=== PATIENT | male | born 1995 | race Two or more races ===

== ENCOUNTER 2024-05-03 19:37 | Inpatient (IN) | payer MEDICAID, SELFPAY ==
[2024-05-03 19:40] VITALS: BMI 24.3
[2024-05-03 21:05] VITALS: BP 121/84; PULSE 118; RESP 20; TEMP 36.7; O2SAT 97
--- NOTE | 2024-05-03 21:38 | PD.EDRME ---
Rapid Medical Screening Exam RME Arrival date/time: 05/03/24 19:37 Chief Complaint: Nausea/Vomiting/Diarrhea Time Seen by Provider: 05/03/24 21:11 Vital signs: Vital Signs Temperature 98.1 F 05/03/24 21:05 Pulse Rate 118 H 05/03/24 21:05 Respiratory Rate 20 05/03/24 21:05 Blood Pressure 121/84 05/03/24 21:05 Pulse Oximetry (%) 97 05/03/24 21:05 Oxygen Delivery Method Room Air 05/03/24 21:05 Vital signs reviewed by provider: Yes RME Narrative: 28-year-old male with past medical history of diabetes on insulin presents for evaluation of diffuse abdominal pain and vomiting x 3 days. He reports blood sugars at home in the mid 200s.
[2024-05-03 21:59] LABS: Basophils % (Auto) 0 % (0-2.5); Eosinophils % (Auto) 0 % (0-10); Hemoglobin 15.9 g/dL (13.5-16.0); Immature Granulocytes % (Auto) 1 % (0-0); Immature Granulocytes Auto 0.09 Thou/mm3 (0.00-0.00); Lymphocytes # (Auto) 1.4 Thou/mm3 (1.0-4.8); Lymphocytes % (Auto) 11 % (10-50); Mean Corpuscular HGB Conc 36.1 g/dl (31.0-37.0); Mean Corpuscular Hemoglobin 31.4 pg (25.0-35.0); Mean Corpuscular Volume 87 fL (80-100); Monocytes # (Auto) 0.6 Thou/mm3 (0.0-0.8); Monocytes % (Auto) 5 % (0-12); Neutrophils # (Auto) 10.2 Thou/mm3 (1.8-7.7); Neutrophils % (Auto) 83 % (37-80); Nucleated Red Blood Cell % 0 /100 WBC (0); Platelet Count 330 Thou/mm3 (140-440); RDW Standard Deviation 38.7 fL (35.1-43.9); Red Blood Count 5.06 Miln/mm3 (4.50-5.90); White Blood Count 12.3 Thou/mm3 (3.8-10.6)
[2024-05-03 22:03] LABS: Beta Hydroxybutyrate > 6.4 mmol/L (<0.6)
[2024-05-03 22:10] LABS: Lactate (Lactic Acid) 2.3 mMol/L (0.4-2.0)
[2024-05-03 22:11] LABS: Base Excess, Venous -15 (-3-3); O2 Saturation, Venous 77 % (96-97); PCO2, Venous 28 mmHg (36-56); PO2, Venous 44 mmHg (15-58); pH, Venous 7.21 (7.33-7.66)
[2024-05-03 22:23] LABS: Alanine Aminotransferase 41 U/L (10-49); Albumin, Serum 5.5 gm/dL (3.5-5.0); Albumin/Globulin Ratio 1.7 (1.2-2.2); Alkaline Phosphatase 85 U/L (46-116); Anion Gap 25 (7-16); Aspartate Amino Transferase 49 U/L (0-34); BUN/Creatinine Ratio 13 Ratio (12-20); Bilirubin,Total 0.7 mg/dL (0.3-1.2); Blood Urea Nitrogen 24 mg/dL (9-23); Calcium 10.8 mg/dL (8.3-10.6); Calcium (Corrected) 10.8 mg/dL (8.5-10.1); Chloride 97 mMol/L (98-107); Creatinine (Component) 1.8 mg/dL (0.6-1.3); Estimated Creatinine Clearance 64.2 mL/min (>60); Globulin 3.2 gm/dL (2.3-3.5); Glucose 395 mg/dL (74-106); Lipase 38 U/L (12-53); Magnesium 2.1 mg/dL (1.6-2.6); Osmolality,Calculated 286 (275-295); Potassium 5.1 mMol/L (3.4-5.1); Sodium 133 mMol/L (136-145); Thyroid Stimulating Hormone 0.73 uIU/mL (0.55-4.78); Total Protein 8.7 gm/dL (5.7-8.2); Troponin I < 0.002 ng/mL (0.0-0.045); eGFR 53 See Note
[2024-05-03] MEDS: ONDANSETRON INJ 2 MG/ML INJ 2 ML 4 MG IV (22:23)
[2024-05-03] MEDS: SODIUM CHLORIDE 0.9% 1000 ML 1,000 ML 999 ML IV ×2 (22:25→22:26)
[2024-05-03 22:32] LABS: Carbon Dioxide 11.3 mMol/L (20.0-31.0)
--- NOTE | 2024-05-03 22:46 | PD.EDNV ---
Nausea/Vomit./Diarrhea-RME/HPI General Chief complaint: Nausea/Vomiting/Diarrhea Stated complaint: VOMITING, SOB Time Seen by Provider: 05/03/24 21:11 Arrival date/time: 05/03/24 19:37 RME / HPI RME / HPI Narrative: 28-year-old male with past medical history of diabetes on insulin presents for evaluation of diffuse abdominal pain and vomiting x 3 days. He reports blood sugars at home in the mid 200s. -------- Dr. Calderon?s Main ED Evaluation: 28yo male with a history of DMI, appendectomy presents to the ED for complaints of diffuse abdominal pain and N/V x yesterday. Patient states he ate a hot dog from the gas station yesterday, reporting he started having diffuse abdominal pain, N/V, and a fever. He states his symptoms persisted and he felt generally weak today, so he came in for evaluation. He denies any diarrhea, UTI symptoms or any other associated symptoms. Related Data Allergies Allergy/AdvReac Type Severity Reaction Status Date / Time tramadol Allergy Verified 05/03/24 19:39 Review of Systems Review of Systems Systems Reviewed: All systems reviewed, normal except as documented Past Medical History Past Medical History CARDIAC: Negative Congestive Heart Failure RESPIRATORY: Negative Chronic Obstructive Pulmonary Disease (COPD) GENITOURINARY: Negative Renal Disease ENDOCRINE: Positive Diabetes Mellitus Type 1; Negative Diabetes Mellitus Type 2 Social History SMOKING STATUS: Current some day smoker ED Exam Narrative Physical exam: GENERAL APPEARANCE: alert and oriented x 4, cachectic, no acute distress VITALS: All vitals were reviewed and the pulse ox is 97% on room air, which is normal according to my interpretation. HEENT: Normocephalic, atraumatic; pupils equal, round, reactive to light; EOMI; mucous membranes pink, moist; oropharynx clear NECK: Supple LUNGS: CTABL; kusmaul's breathing, no wheezes, no rales, no rhonchi HEART: Tachycardic, regular rhythm; normal S1, S2; no murmurs ABDOMEN: non distended; normal BS; soft, no tenderness, no guarding, no rebound; no masses, no organomegaly, no hernia BACK: no CVA tenderness EXTREMITIES: atraumatic; no edema NEUROLOGIC: awake; alert and oriented x4; cranial nerves II-XII grossly intact; no focal sensory or motor deficits PSYCHIATRIC: appropriate mood and affect SKIN: warm, dry, normal color; no rashes Course Course Course Narrative: CXR is ordered for determining the etiology of weakness. Quality Measures none Orders Category Date Time Status Bedside COVID-19 Antigen Test NOW Care 05/03/24 21:39 Active Bedside Influenza A&B Antigen Test NOW Care 05/03/24 21:40 Completed Film Flat Inspector Q4H START 00 Care 05/03/24 22:47 Active Continuous Pulse Oximetry NOW Care 05/03/24 22:47 Completed EKG (ED ONLY) *Do not use* NOW Care 05/03/24 22:49 Completed Insert IV NOW Care 05/03/24 21:39 Active EKG (ED Only) Stat Exams 05/03/24 22:49 Draft XR chest 1V portable Stat Exams 05/03/24 22:49 Completed Beta Hydroxybutyrate Stat Lab 05/03/24 21:47 Completed CBC Stat Lab 05/03/24 21:47 Completed CMP [Comprehensive Metabolic Panel] Stat Lab 05/03/24 21:47 Completed Free T4 (Free Thyroxine) Stat Lab 05/03/24 21:47 Completed Lactic Acid [Lactate (Lactic Acid)] Stat Lab 05/03/24 21:47 Results Lipase Stat Lab 05/03/24 21:47 Completed Mag [Magnesium] Stat Lab 05/03/24 21:47 Completed TSH [Thyroid Stimulating Hormone] Stat Lab 05/03/24 21:47 Completed Troponin I Stat Lab 05/03/24 21:47 Completed UA [Urinalysis] Stat Lab 05/03/24 23:43 Received VBG [Venous Blood Gas] Stat Lab 05/03/24 21:47 Completed Insulin Reg 100 Units/100 ml [Myxredlin] Med 05/03/24 22:48 Active 100 unit in 100 ml IV 0.1 unit/kg/hr Ondansetron Inj [Zofran Inj] Med 05/03/24 21:39 Discontinued 4 mg IV X1 ONE Sodium Chloride 0.9% 1000 ml [Ns] 1,000 ml Med 05/03/24 22:07 Discontinued IV 999 mls/hr Sodium Chloride 0.9% 1000 ml [Ns] 1,000 ml Med 05/03/24 22:07 Discontinued IV 999 mls/hr Sodium Chloride 0.9% 500 ml [Ns] 500 ml Med 05/03/24 21:39 Discontinued IV 999 mls/hr Vital Signs Vital signs: Vital Signs Temperature 98.1 F 05/03/24 21:05 Pulse Rate 118 H 05/03/24 21:05 Respiratory Rate 20 05/03/24 21:05 Blood Pressure 121/84 05/03/24 21:05 Pulse Oximetry (%) 97 05/03/24 21:05 Oxygen Delivery Method Room Air 05/03/24 21:05 Nausea/Vomiting/Diarrhea MDM Narrative MDM Narrative:: Scribe Attestation: 05/03/24 - Kellen Lopez am scribing for and in the presence of Dr. Calderon. Patient data External records reviewed:: [facility] previous records (Per chart review, patient has no previous ED visits or admissions to this facility.) Clinical information provided by:: patient Social determinants that could affect healthcare access:: none Patient has the following chronic illnesses:: DMI How is presenting disease/condition affected by chronic disease/condition?: caused by Evaluation data The following diagnostics were reviewed and interpreted by me:: lab results, radiology exam(s) and EKG tracing(s) Lab and/or radiology exams considered but not ordered:: none Interpretation Summary: WBC count is elevated at 12.3, VBG shows a low pH of 7.21 and low pCO2 of 28, Sodium is 133, Carbon Dioxide is low at 11.3, Anion Gap is elevated at 25, Creatinine is elevated at 1.8, Glucose is elevated at 395, Lactic Acid is elevated at 2.3, Magnesium and Potassium are normal, Lipase is normal, Beta Hydroxybutyrate is greater than 6.4, TSH is normal, according to my interpretation. EKG done at 2335, NSR, rate of 87, left axis deviation, no ectopy, QTc: 404, QRS: 187, no acute ischemia, according to my interpretation. --------- [place] [facility] Report Signed Patient: JORGE AKINS Record#: [id number] Birthdate: 1995 Age/Sex: 28 / M Location: [facility] Attending Dr: Ordering Physician: González Calderon MD Date of Service: 05/03/24 Procedure(s): XR chest 1V portable Accession Number(s): [id number] cc: Shayan Larson MD; NO PRIMARY/FAMILY,PHYSICIAN; González Calderon MD~ Examination: AP chest single view Technique: AP portable upright chest single view Exam date and time: May 03, 2024, 1005 hrs. Indications: Coughing 3 days, diabetic Findings: Normal heart size. Lungs are clear. The osseous structures are intact Impression: No active disease Dictated By: Shayan Larson MD Signed By: <Electronically signed by Shayan Larson MD in OV> 05/03/24 2320 Medications / Prescriptions Medications / Prescriptions considered but not ordered:: none Medication administrations:: Medication Administration History Insulin Human Regular (Myxredlin) 100 unit in 100 mls @ 7.711 mls/hr IV .[id number] PRN; Protocol PRN Reason: PER PROTOCOL Stop: 06/02/24 22:47 Last Admin: 05/03/24 23:59 Dose: 0.1 unit/kg/hr, 7.711 mls/hr Documented By: CHUCK Co-signed By: KG Discontinued Medications Sodium Chloride (Ns) 500 mls @ 999 mls/hr IV .Q31M ONE Stop: 05/03/24 22:09 Last Admin: 05/03/24 22:27 Dose: Not Given Documented By: RITA Non-Admin Reason: Cancelled by Provider Sodium Chloride (Ns) 1,000 mls @ 999 mls/hr IV .Q1H1M ONE Stop: 05/03/24 23:07 Last Infusion: 05/03/24 23:37 Dose: Infused Documented By: Admin: 05/03/24 22:25 Dose: 999 mls/hr Documented By: KG Sodium Chloride (Ns) 1,000 mls @ 999 mls/hr IV .Q1H1M ONE Stop: 05/03/24 23:07 Last Infusion: 05/03/24 23:37 Dose: Infused Documented By: Admin: 05/03/24 22:26 Dose: 999 mls/hr Documented By: RITA Ondansetron HCl (Ondansetron Inj 2 Mg/Ml Inj 2 Ml) 4 mg IV X1 ONE; Protocol Stop: 05/03/24 21:40 Last Admin: 05/03/24 22:23 Dose: 4 mg Documented By: KG see above Consultations Consultation(s) initiated? (list below): Yes Consultation #1 (Physician, Specialty, Details): Discussed case with [the resident physician, attending Dr. Dasilva] from Hospitalist service regarding admission. Discussed patients ED course, exam findings, labs, and radiology results. The Hospitalist [agrees] to accept the patient for admission. Time: 00:10 Diagnosis Nausea Differential Diagnosis: other (DKA, hyperglycemia without ketosis, hyperosmolar state, electrolyte abnormality) Most likely diagnosis given after review of the tests above:: see clinical impression below Admission Indicated Admission indicated?: indicated Admission Request Was there a request for admission?: Yes Admission Attestation Admission request attestation: Discussed case with [] from Hospitalist service regarding admission. Discussed patients ED course, exam findings, labs, and radiology results. The Hospitalist [agrees,declines] to accept the patient for admission. Disposition Plan Disposition Plan: Admit Critical Care Time Critical Care Time Critical Care Time: Yes Total Critical Care Time (min.): 60 Attestation: The high probability of sudden, clinically significant deterioration in the patient?s condition required the highest level of my preparedness to intervene urgently. The services I provided to this patient were to treat and/or prevent clinically significant deterioration. Services included the following: chart data review, reviewing nursing notes and/or old charts, documentation time, teamcenter consultant collaboration regarding findings and treatment options, medication orders and management, direct patient care, vital sign assessments and ordering, interpreting and reviewing diagnostic studies and lab tests. Aggregate critical care time includes only time during which I was engaged in work directly related to the patient?s care, as described above, whether at bedside or elsewhere in the Emergency Department. It did not include time spent performing other reported procedures or the services of residents, students, nurses or physician assistants. Discharge Plan Plan Patient Disposition: Admit Acute Care w/in Hospital Prescriptions/Referrals Referrals: No Primary/Family,Physician [Primary Care Provider] - In 1 week Problem List Clinical Impression: DKA (diabetic ketoacidosis) Patient/Caregiver Discharge Instructions Print Language: Ivorian Stand Alone Forms: Silvana Award Info., Patient Portal Info Letter
--- NOTE | 2024-05-03 22:49 | XR_ITS ---
Examination: AP chest single view Technique: AP portable upright chest single view Exam date and time: May 03, 2024, 1005 hrs. Indications: Coughing 3 days, diabetic Findings: Normal heart size. Lungs are clear. The osseous structures are intact Impression: No active disease
--- NOTE | 2024-05-03 22:49 | EKG_ITS ---
[facility] Test Date: 2024-05-03 Pat Name: JORGE AKINS Department: Room: - Gender: Male Road Patcher: : 1995 Requested By: González Bryson Order Number: [id number] Reading MD: González Bryson Measurements Intervals [place] Rate: 87 P: 73 AR: 161 QRS: -76 QRSD: 108 T: 72 QT: 360 QTc: 433 Interpretive Statements SINUS RHYTHM LEFT AXIS DEVIATION [QRS AXIS < -30] No previous ECG available for comparison /store/S0/[id number]/ecg/[id number].pdf
[2024-05-03 22:50] VITALS: PULSE 87
[2024-05-03 23:34] VITALS: BP 143/84; PULSE 98; RESP 15; TEMP 37.4; O2SAT 98
[2024-05-03 23:37] LABS: Free T4 (Free Thyroxine) 1.34 ng/dL (0.89-1.76)
[2024-05-03 23:51] LABS: Collection Type, Urine Clean Catch
[2024-05-03] MEDS: INSULIN REG 100 UNITS/100 ML 100 UNIT/100 ML BAG 7.711 UNIT IV (23:59)
[2024-05-04] VITALS (24 sets, daily range): BP systolic 93–146; BP diastolic 61–94; PULSE 74–117; RESP 9–31; TEMP 36.7–37.8; O2SAT 96–99; BMI 24.3
[2024-05-04 00:05] LABS: Bilirubin,Urine Negative (Negative); Blood,Urine Negative (Negative); Clarity,Urine Clear (Clear/Hazy); Color,Urine Lt-Yellow (Lt Yel-Yel); Glucose, Urine 4+ (Negative); Hyaline Casts,Urine < 1 /hpf (0-1); Ketones,Urine 4+ (Negative); Leukocyte Esterase,Urine Negative (Negative); Nitrite,Urine Negative (Negative); PH,Urine 5.5 (5.0-7.0); Protein,Urine 1+ (Neg - Trace); RBC,Urine 3 /hpf (0-3); Specific Gravity,Urine 1.024 (1.001-1.035); Squamous Epithelial Cell,Urine < 1 /hpf (0-5); Urobilinogen,Urine Negative mg/dL (0.0-1.0); WBC,Urine 1 /hpf (0-5)
[2024-05-04] MEDS: RINGERS LACTATED 1000 ML 1,000 ML 999 ML IV (00:56)
[2024-05-04 01:10] LABS: Reflex Lactate? Y
--- NOTE | 2024-05-04 01:10 | ESHP_ITS ---
<Statement entered by Hannah Dasilva MD - 05/04/24 23:49> 28-year-old male with type 1 diabetes mellitus on insulin who presented with diffuse abdominal pain found to have diabetic ketoacidosis subsequently started on insulin drip and plan to admit the patient to ICU. Patient's DKA likely related to gastroenteritis and plan to continue IV insulin and IV hydration. I reviewed above note and agree with findings and plans. I have also personally examined the patient with medicine team and went over assessment and plan with medical team including international representative and resident physician. Documentation for date of: 05/04/24 HPI History of Present Illness History of present illness: 28 year old male patient with PMHx of IDDM I, and appendectomy presented to ED for complaints of diffuse abdominal pain, nausea and vomiting since day prior to admission. Patient reports having a hot dog from a gas station a few hours prior to symptoms start, denies any diarrhea, fever or chills. Patient has no other complaints, states that he is compliant with his insulin, never misses a dose and calculates his calorie intake. At ED patient was found to be tachycardic, labs were noted for WBC of 12, Na 133, K 5.1, Cl 97, HCO3 11.3, AG 25, Cr 1.8, glucose of 395, C. Calcium of 10.8, P 2.0, BHB >6.4, VBG pH 7.21, pCO2 28. At ED patient was given 2L of NS bolus and was started on insulin drip, ICU consulted for further evaluation and care of DKA. Review of Systems Review of Systems Systems Reviewed: All systems reviewed, normal except as documented Past Medical History Past Medical History CARDIAC: Negative Congestive Heart Failure RESPIRATORY: Negative Chronic Obstructive Pulmonary Disease (COPD) GENITOURINARY: Negative Renal Disease ENDOCRINE: Positive Diabetes Mellitus Type 1; Negative Diabetes Mellitus Type 2 Social History SMOKING STATUS: Current some day smoker Exam Vital Signs Temp Pulse Resp BP Pulse Ox O2 Del Method 99.3 F 98 15 143/84 H 98 Room Air 05/03/24 23:34 05/03/24 23:34 05/03/24 23:34 05/03/24 23:34 05/03/24 23:34 05/03/24 23:34 Narrative Exam General: well developed, well nourished, laying in bed, not in acute distress, answering questions appropriately, making appropriate eye contact HEENT: Normocephalic, atraumatic, EOMI, PERRLA, dry oral mucosa, normal dentition. Cardiac: Tachycardic, normal S1/S2, no murmurs. Lungs: Clear to auscultation with no wheezings or crackles, normal respiratory effort and rate. Abdomen: Soft, mildly tender, nondistended, positive bowel sounds in all quadrants. No guarding or rebound tenderness. Neuro: Alert and oriented to name and date of and place. CN II- XII intact, no focal motor deficit noted, BUE/BLE motor function and sensation intact and equal. Extremities: Normal to inspection, no edema, no cyanosis. Results: Labs 05/03/24 21:47 05/03/24 21:47 Labs: Short CBC 05/03/24 Range/Units 21:47 WBC 12.3 H (3.8-10.6) Thou/mm3 Hgb 15.9 (13.5-16.0) g/dL Hct 44.0 (41.0-53.0) % Plt Count 330 (140-440) Thou/mm3 BMP 05/03/24 21:47 Sodium 133 L Potassium 5.1 Chloride 97 L Carbon Dioxide 11.3 L* BUN 24 H Creatinine 1.8 H Glucose 395 H Calcium 10.8 H Cardiac Enzymes 05/03/24 Range/Units 21:47 Troponin I < 0.002 (0.0-0.045) ng/mL Liver Function 05/03/24 Range/Units 21:47 Total Bilirubin 0.7 (0.3-1.2) mg/dL AST 49 H (0-34) U/L ALT 41 (10-49) U/L Alkaline Phosphatase 85 (46-116) U/L Albumin 5.5 H (3.5-5.0) gm/dL Urine 05/03/24 Range/Units 23:43 Urine Color Lt-Yellow (Lt Yel-Yel) Urine Clarity Clear (Clear/Hazy) Urine pH 5.5 (5.0-7.0) Ur Specific [place] 1.024 (1.001-1.035) Urine Protein 1+ A (Neg - Trace) Urine Glucose (UA) 4+ A (Negative) ABG Interpretation ABG results: 05/03/24 21:47 VBG pH 7.21 L VBG pCO2 28 L VBG pO2 44 VBG Base Excess -15 L Quality Measures Quality Measures none Medications Home Medications and Allergies Allergies Allergy/AdvReac Type Severity Reaction Status Date / Time tramadol Allergy Verified 05/03/24 19:39 Visit Medications Acetaminophen (Acetaminophen 325 Mg Tablet) 650 mg PO Q4HR PRN PRN Reason: PAIN SCALE 1-3 (mild Stop: 06/03/24 00:56 Acetaminophen (Acetaminophen Supp 650 Mg Supp) 650 mg TX Q4HR PRN PRN Reason: PAIN SCALE 1-3 (mild Stop: 06/03/24 00:56 Al Hydrox/Mg Hydrox/Simethicone (Mg Hyd/Al Hyd/[place] (Maalox Reg) Susp 30 Ml Udc) 30 ml PO Q4HR PRN PRN Reason: Heartburn or Upset Stomach Stop: 06/03/24 00:56 Dextrose (Dextrose 50%-Water Inj 50 Ml Syringe) 25 ml IV PRNMRX1 PRN PRN Reason: Blood Sugar - Low Enoxaparin Sodium (Enoxaparin Sod Inj 40 Mg/0.4 Ml Syringe) 40 mg SC QDAY GLENN Stop: 05/18/24 08:59 Insulin Human Regular (Myxredlin) 100 unit in 100 mls @ 7.711 mls/hr IV .[id number] PRN; Protocol PRN Reason: PER PROTOCOL Stop: 06/02/24 22:47 Last Titration: 05/04/24 00:56 Dose: 0.1 unit/kg/hr, 7.711 mls/hr Lactated Ringer's (Lactated Ringers) 1,000 mls @ 999 mls/hr IV .Q1H1M ONE Stop: 05/04/24 01:45 Last Admin: 05/04/24 00:56 Dose: 999 mls/hr Potassium Chloride (Kcl Ivpb) 10 meq in 100 mls @ 100 mls/hr IV .Q1H PRN PRN Reason: IF POTASSIUM LESS THAN 3.3 Stop: 06/03/24 00:56 Magnesium Sulfate (Magnesium Sulfate Ivpb) 2 gm in 50 mls @ 25 mls/hr IV .Q2H PRN PRN Reason: PER DKA PROTOCOL Stop: 06/03/24 00:56 Dextrose/Lactated Ringer's (D5-Lr) 1,000 mls @ 250 mls/hr IV .Q4H PRN PRN Reason: PER PROTOCOL Stop: 06/03/24 00:56 Lactated Ringer's (Lactated Ringers) 1,000 mls @ 250 mls/hr IV .Q4H PRN PRN Reason: PER PROTOCOL Stop: 05/05/24 00:56 Potassium Chloride 20 meq/ (Lactated Ringer's) 1,010 mls @ 250 mls/hr IV .Q4H3M PRN PRN Reason: K LEVEL 3.3 TO 5.3mM/L Stop: 06/03/24 00:56 Potassium Chloride 40 meq/ (Lactated Ringer's) 1,020 mls @ 250 mls/hr IV .Q4H5M PRN PRN Reason: K LEVEL < 3.3 mM/L Stop: 06/03/24 00:56 Potassium Chloride 40 meq/ (Dextrose/Lactated Ringer's) 1,020 mls @ 250 mls/hr IV .Q4H5M PRN PRN Reason: K LEVEL < 3.3mM/L Stop: 06/03/24 00:56 Potassium Cl/Dextrose/Lact Ringer's (Kcl 20 Meq/L In D5-Lr) 20 meq in 1,000 mls @ 250 mls/hr IV .Q4H PRN PRN Reason: K LEVEL 3.3 TO 5.3 mM/L Stop: 06/03/24 00:56 Potassium Chloride (Kcl Ivpb) 10 meq in 100 mls @ 50 mls/hr IV PRN PRN PRN Reason: K LEVEL 3.3 to 5.3 & BG > 200 Stop: 06/03/24 00:56 Potassium Phosphate (Pot Phos 15 Mmol In Ns 250 Ml) 15 mmol in 250 mls @ 62.5 mls/hr IV PRN PRN PRN Reason: Phosphate <= 1mg/dL Stop: 06/03/24 00:56 Sodium Phosphate 15 mmol/ (Sodium Chloride) 255 mls @ 62.5 mls/hr IV .Q4H5M PRN PRN Reason: Phosphate <= 1mg/dL and K> than 5.3 Stop: 06/03/24 00:56 Magnesium Hydroxide (Milk Of Magnesia Susp 30 Ml Udc) 30 ml PO QDAY PRN PRN Reason: CONSTIPATION Stop: 06/03/24 00:56 Sodium Bicarbonate (Sodium Bicarb Inj 8.4% Syr 50 Ml Syringe) 50 ml IV PRN PRN PRN Reason: For ph <= to 7.0 Stop: 06/03/24 00:56 Discontinued Medications Sodium Chloride (Ns) 500 mls @ 999 mls/hr IV .Q31M ONE Stop: 05/03/24 22:09 Last Admin: 05/03/24 22:27 Dose: Not Given Sodium Chloride (Ns) 1,000 mls @ 999 mls/hr IV .Q1H1M ONE Stop: 05/03/24 23:07 Last Infusion: 05/03/24 23:37 Dose: Infused Sodium Chloride (Ns) 1,000 mls @ 999 mls/hr IV .Q1H1M ONE Stop: 05/03/24 23:07 Last Infusion: 05/03/24 23:37 Dose: Infused Insulin Human Regular 100 unit (/ IV Miscellaneous Supplies) 100 mls @ 7.711 mls/hr IV .[id number] PRN; Protocol PRN Reason: PER PROTOCOL Stop: 06/03/24 00:56 Ondansetron HCl (Ondansetron Inj 2 Mg/Ml Inj 2 Ml) 4 mg IV X1 ONE; Protocol Stop: 05/03/24 21:40 Last Admin: 05/03/24 22:23 Dose: 4 mg Assessment & Plan Plan 28 year old male patient with PMHx of IDDM I, and appendectomy presented to ED for complaints of diffuse abdominal pain, nausea and vomiting since day prior to admission. Patient reports having a hot dog from a gas station a few hours prior to symptoms start, denies any diarrhea, fever or chills. Patient has no other complaints, states that he is compliant with his insulin, never misses a dose and calculates his calorie intake. At ED patient was found to be tachycardic, labs were noted for WBC of 12, Na 133, K 5.1, Cl 97, HCO3 11.3, AG 25, Cr 1.8, glucose of 395, C. Calcium of 10.8, P 2.0, BHB >6.4, VBG pH 7.21, pCO2 28. At ED patient was given 2L of NS bolus and was started on insulin drip, ICU consulted for further evaluation and care of DKA. 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 Resp #No active issues Renal #Anion gap metabolic acidosis w/respiratory alkalosis #DKA #Pre-renal KAMILLA #Hyponatremia Patient given 2L of NS bolus at ED. Corrected Na 140 DKA protocol in ENDO F/U renal panel. ID #Gastroenteritis? Patient reports nausea/vomiting after consuming hot dog from gas station. Denies any diarrhea, chills, fever. Patient started on IV hydration, no longer having nausea/vomiting. Heme #Leukocytosis Likely reactive in setting of DKA versus gastroenteritis. Continue to monitor daily CBC. Further evaluation/lab testing as warranted. Endo #DKA Patient started on DKA protocol. -F/U HbA1c #IDDM I Patient on 16 units of glargine twice daily. Patient on sliding scale insulin with lispro. Resume home medications after resolution of DKA. Follow-up HgbA1c. GI #Nausea/vomiting 2/2 Gastroenteritis vs DKA Patient no longer has nausea/vomiting. Ondansetron as needed Ondansetron as needed Continue to monitor with further evaluation/labs as warranted. DVT prophylaxis: SCDs Diet: NPO Lines: PIV CODE STATUS: Full code Reason for hospitalization/disposition: DKA Plan of care discussed with attending Dr. Brown Singh M.D. PGY-3
[2024-05-04 01:33] LABS: Glucose Estimated Average 243 mg/dL (80-131); Hemoglobin A1C 10.1 % Hgb (4.8-6.0)
[2024-05-04] MEDS: RINGERS LACTATED 1000 ML 1,000 ML 250 ML IV (02:32)
[2024-05-04] MEDS: POTASSIUM CHL 10 mEq IVPB 10 MEQ/100 ML BAG 50 MEQ IV (02:34)
[2024-05-04] MEDS: KCL 20 mEq/L in D5-LR 20 MEQ/1,000 ML BAG 250 MEQ IV ×3 (04:00→14:51)
[2024-05-04 05:59] LABS: Lactate (Lactic Acid) 1.1 mMol/L (0.4-2.0)
[2024-05-04 06:52] LABS: Albumin, Serum 4.3 gm/dL (3.5-5.0); Anion Gap 15 (7-16); BUN/Creatinine Ratio 14 Ratio (12-20); Blood Urea Nitrogen 18 mg/dL (9-23); Calcium 9.1 mg/dL (8.3-10.6); Calcium (Corrected) 9.1 mg/dL (8.5-10.1); Carbon Dioxide 15.9 mMol/L (20.0-31.0); Chloride 105 mMol/L (98-107); Creatinine (Component) 1.3 mg/dL (0.6-1.3); Estimated Creatinine Clearance 88.9 mL/min (>60); Glucose 168 mg/dL (74-106); Magnesium 1.9 mg/dL (1.6-2.6); Osmolality,Calculated 277 (275-295); Phosphorous 1.5 mg/dL (2.4-5.1); Potassium 4.2 mMol/L (3.4-5.1); Sodium 136 mMol/L (136-145); eGFR > 60 See Note
--- NOTE | 2024-05-04 08:30 | PD.RESPRO ---
Documentation for date of: 05/04/24 Subjective Subjective Interval history: No acute/overnight events Exam Vital Signs Temp Pulse Resp BP Pulse Ox O2 Del Method 100.1 F 117 H 23 H 117/81 99 Room Air 05/04/24 08:00 05/04/24 08:00 05/04/24 08:00 05/04/24 08:00 05/04/24 08:00 05/04/24 08:00 Narrative Exam General: well developed, well nourished, laying in bed, not in acute distress, answering questions appropriately, making appropriate eye contact HEENT: Normocephalic, atraumatic, EOMI, PERRLA, dry oral mucosa, normal dentition. Cardiac: Tachycardic, normal S1/S2, no murmurs. Lungs: Clear to auscultation with no wheezings or crackles, normal respiratory effort and rate. Abdomen: Soft, mildly tender, nondistended, positive bowel sounds in all quadrants. No guarding or rebound tenderness. Neuro: Alert and oriented to name and date of and place. CN II- XII intact, no focal motor deficit noted, BUE/BLE motor function and sensation intact and equal. Extremities: Normal to inspection, no edema, no cyanosis. Objective Labs 05/03/24 21:47 05/04/24 05:27 Labs: Laboratory Results - last 24 hr 05/03/24 05/03/24 05/04/24 21:47 23:43 00:00 WBC 12.3 H RBC 5.06 Hgb 15.9 Hct 44.0 MCV 87 MCH 31.4 MCHC 36.1 RDW Std Deviation 38.7 Plt Count 330 Neut % (Auto) 83 H Lymph % (Auto) 11 [place] % (Auto) 5 Eos % (Auto) 0 Baso % (Auto) 0 Neut # (Auto) 10.2 H Lymph # (Auto) 1.4 [place] # (Auto) 0.6 Eos # (Auto) 0.0 Baso # (Auto) 0.0 Immature Gran # (Auto) 0.09 H Absolute Nucleated RBC 0.00 Immature Gran % 1 H Nucleated RBC % 0 VBG pH 7.21 L VBG pCO2 28 L VBG pO2 44 VBG O2 Sat (Flor) 77 L VBG Base Excess -15 L Sodium 133 L Potassium 5.1 Chloride 97 L Carbon Dioxide 11.3 L* Anion Gap 25 H BUN 24 H Creatinine 1.8 H Estim Creat Clear Calc 64.2 eGFR 53 L BUN/Creatinine Ratio [address]ucose [address] Glu mg/dL 243 H Hemoglobin A1c 10.1 H Calculated Osmolality 286 Lactic Acid 2.3 H Calcium 10.8 H Corrected Calcium 10.8 H Phosphorus Magnesium 2.1 Total Bilirubin 0.7 AST 49 H ALT 41 Alkaline Phosphatase 85 Troponin I < 0.002 Total Protein 8.7 H Albumin 5.5 H Globulin 3.2 Albumin/Globulin Ratio 1.7 Lipase 38 Beta-Hydroxybutyrate/Acetoacetate > 6.4 H TSH 0.73 Free T4 1.34 Ur Collection Type Clean Catch Urine Color Lt-Yellow Urine Clarity Clear Urine pH 5.5 Ur Specific [place] 1.024 Urine Protein 1+ A Urine Glucose (UA) 4+ A Urine Ketones 4+ A Urine Blood Negative Urine Nitrite Negative Urine Bilirubin Negative Urine Urobilinogen (Auto) Negative Ur Leukocyte Esterase Negative Urine RBC 3 Urine WBC 1 Ur Squamous Epith Cells < 1 Urine Bacteria None Hyaline Casts < 1 05/04/24 05/04/24 01:34 05:27 WBC RBC Hgb Hct MCV MCH MCHC RDW Std Deviation Plt Count Neut % (Auto) Lymph % (Auto) [place] % (Auto) Eos % (Auto) Baso % (Auto) Neut # (Auto) Lymph # (Auto) [place] # (Auto) Eos # (Auto) Baso # (Auto) Immature Gran # (Auto) Absolute Nucleated RBC Immature Gran % Nucleated RBC % VBG pH VBG pCO2 VBG pO2 VBG O2 Sat (Flor) VBG Base Excess Sodium 136 Potassium 4.2 D Chloride 105 Carbon Dioxide 15.9 L Anion Gap 15 BUN 18 Creatinine 1.3 D Estim Creat Clear Calc 88.9 eGFR > 60 BUN/Creatinine Ratio 14 Glucose [address] Glu mg/dL Hemoglobin A1c Calculated Osmolality 277 Lactic Acid 2.0 1.1 Calcium 9.1 D Corrected Calcium 9.1 D Phosphorus 2.0 L 1.5 L Magnesium 1.9 Total Bilirubin AST ALT Alkaline Phosphatase Troponin I Total Protein Albumin 4.3 D Globulin Albumin/Globulin Ratio Lipase Beta-Hydroxybutyrate/Acetoacetate TSH Free T4 Ur Collection Type Urine Color Urine Clarity Urine pH Ur Specific [place] Urine Protein Urine Glucose (UA) Urine Ketones Urine Blood Urine Nitrite Urine Bilirubin Urine Urobilinogen (Auto) Ur Leukocyte Esterase Urine RBC Urine WBC Ur Squamous Epith Cells Urine Bacteria Hyaline Casts ABG Interpretation ABG results: 05/03/24 21:47 VBG pH 7.21 L VBG pCO2 28 L VBG pO2 44 VBG Base Excess -15 L Quality Measures Quality Measures none Assessment & Plan Assessment Current Active Medications: Generic Name Dose Route Start Last Admin Trade Name Freq PRN Reason Stop Dose Admin Acetaminophen 650 mg 05/04/24 00:57 Acetaminophen 325 Mg Tablet PO 06/03/24 00:56 Q4HR PRN PAIN SCALE 1-3 (mild Acetaminophen 650 mg 05/04/24 00:57 Acetaminophen Supp 650 Mg Supp OR 06/03/24 00:56 Q4HR PRN PAIN SCALE 1-3 (mild Al Hydrox/Mg Hydrox/Simethicone 30 ml 05/04/24 00:57 Mg Hyd/Al Hyd/[place] (Maalox Reg) Susp 30 Ml Udc PO 06/03/24 00:56 Q4HR PRN Heartburn or Upset Stomach Dextrose 25 ml 05/04/24 00:57 Dextrose 50%-Water Inj 50 Ml Syringe IV [id number] PRN Blood Sugar - Low Enoxaparin Sodium 40 mg 05/04/24 09:00 Enoxaparin Sod Inj 40 Mg/0.4 Ml Syringe SC 05/18/24 08:59 QDAY GLENN Insulin Human Regular 100 unit in 100 mls @ 7.711 mls/hr 05/03/24 22:48 05/04/24 08:00 Myxredlin IV 06/02/24 22:47 0.05 unit/kg/hr .[id number] PRN 3.856 mls/hr PER PROTOCOL Titration Protocol 0.1 UNIT/KG/HR Potassium Chloride 10 meq in 100 mls @ 100 mls/hr 05/04/24 00:57 Kcl Ivpb IV 06/03/24 00:56 .Q1H PRN IF POTASSIUM LESS THAN 3.3 Magnesium Sulfate 2 gm in 50 mls @ 25 mls/hr 05/04/24 00:57 Magnesium Sulfate Ivpb IV 06/03/24 00:56 .Q2H PRN PER DKA PROTOCOL Dextrose/Lactated Ringer's 1,000 mls @ 250 mls/hr 05/04/24 00:57 D5-Lr IV 06/03/24 00:56 .Q4H PRN PER PROTOCOL Lactated Ringer's 1,000 mls @ 250 mls/hr 05/04/24 00:57 05/04/24 04:00 Lactated Ringers IV 05/05/24 00:56 0 mls/hr .Q4H PRN Infusion PER PROTOCOL Potassium Chloride 20 meq/ 1,010 mls @ 250 mls/hr 05/04/24 00:57 Lactated Ringer's IV 06/03/24 00:56 .Q4H3M PRN K LEVEL 3.3 TO 5.3mM/L Potassium Chloride 40 meq/ 1,020 mls @ 250 mls/hr 05/04/24 00:57 Lactated Ringer's IV 06/03/24 00:56 .Q4H5M PRN K LEVEL < 3.3 mM/L Potassium Chloride 40 meq/ 1,020 mls @ 250 mls/hr 05/04/24 00:57 Dextrose/Lactated Ringer's IV 06/03/24 00:56 .Q4H5M PRN K LEVEL < 3.3mM/L Potassium Cl/Dextrose/Lact Ringer's 20 meq in 1,000 mls @ 250 mls/hr 05/04/24 00:57 05/04/24 04:00 Kcl 20 Meq/L In D5-Lr IV 06/03/24 00:56 250 mls/hr .Q4H PRN Administration K LEVEL 3.3 TO 5.3 mM/L Potassium Chloride 10 meq in 100 mls @ 50 mls/hr 05/04/24 00:57 05/04/24 04:00 Kcl Ivpb IV 06/03/24 00:56 0 mls/hr PRN PRN Infusion K LEVEL 3.3 to 5.3 & BG > 200 Potassium Phosphate 15 mmol in 250 mls @ 62.5 mls/hr 05/04/24 00:57 Pot Phos 15 Mmol In Ns 250 Ml IV 06/03/24 00:56 PRN PRN Phosphate <= 1mg/dL Sodium Phosphate 15 mmol/ 255 mls @ 62.5 mls/hr 05/04/24 00:57 Sodium Chloride IV 06/03/24 00:56 .Q4H5M PRN Phosphate <= 1mg/dL and K> than 5.3 Magnesium Hydroxide 30 ml 05/04/24 00:57 Milk Of Magnesia Susp 30 Ml Udc PO 06/03/24 00:56 QDAY PRN CONSTIPATION Sodium Bicarbonate 50 ml 05/04/24 00:57 Sodium Bicarb Inj 8.4% Syr 50 Ml Syringe IV 06/03/24 00:56 PRN PRN For ph <= to 7.0 Plan Plan 28 year old male patient with PMHx of IDDM I, and appendectomy presented to ED for complaints of diffuse abdominal pain, nausea and vomiting since day prior to admission. Patient reports having a hot dog from a gas station a few hours prior to symptoms start, denies any diarrhea, fever or chills. Patient has no other complaints, states that he is compliant with his insulin, never misses a dose and calculates his calorie intake. At ED patient was found to be tachycardic, labs were noted for WBC of 12, Na 133, K 5.1, Cl 97, HCO3 11.3, AG 25, Cr 1.8, glucose of 395, C. Calcium of 10.8, P 2.0, BHB >6.4, VBG pH 7.21, pCO2 28. At ED patient was given 2L of NS bolus and was started on insulin drip, ICU consulted for further evaluation and care of DKA. 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 Ondansetron as needed Continue to monitor with further evaluation/labs as warranted. Renal #Anion gap metabolic acidosis w/respiratory alkalosis #DKA #Pre-renal KAMILLA Patient given 2L of NS bolus at ED. DKA protocol in ENDO F/U renal panel -anion gap closed this AM (anion gap 15), will wait for repeat labs Heme/ID #Leukocytosis Likely reactive in setting of DKA versus gastroenteritis. Continue to monitor daily CBC. Further evaluation/lab testing as warranted. Endo #DKA Patient started on DKA protocol. -F/U HbA1c #IDDM I A1c 10.1 Patient on 16 units of glargine twice daily. Patient on sliding scale insulin with lispro. Resume home medications after resolution of DKA. DVT prophylaxis: SCDs Diet: NPO Lines: PIV CODE STATUS: Full code Reason for hospitalization/disposition: DKA
[2024-05-04 09:57] LABS: Base Excess, Venous -3 (-3-3); O2 Saturation, Venous 79 % (96-97); PCO2, Venous 36 mmHg (36-56); PO2, Venous 41 mmHg (15-58); pH, Venous 7.38 (7.33-7.66)
[2024-05-04 09:58] LABS: Lactate (Lactic Acid) 0.9 mMol/L (0.4-2.0)
[2024-05-04 10:40] LABS: Albumin, Serum 4.2 gm/dL (3.5-5.0); Anion Gap 13 (7-16); BUN/Creatinine Ratio 15 Ratio (12-20); Blood Urea Nitrogen 18 mg/dL (9-23); Calcium 9.4 mg/dL (8.3-10.6); Calcium (Corrected) 9.4 mg/dL (8.5-10.1); Carbon Dioxide 20.4 mMol/L (20.0-31.0); Chloride 104 mMol/L (98-107); Creatinine (Component) 1.2 mg/dL (0.6-1.3); Estimated Creatinine Clearance 96.3 mL/min (>60); Glucose 116 mg/dL (74-106); Magnesium 1.9 mg/dL (1.6-2.6); Osmolality,Calculated 276 (275-295); Phosphorous 1.4 mg/dL (2.4-5.1); Potassium 3.8 mMol/L (3.4-5.1); Sodium 137 mMol/L (136-145); eGFR > 60 See Note
--- NOTE | 2024-05-04 11:51 | ESPR_ITS ---
Documentation for date of: 05/04/24 Subjective Subjective Interval history: This is a 28-year-old male admitted to the ICU overnight for DKA. The patient states that he is very compliant with his insulin at home and is unsure why he entered DKA at this point in time. He has 1 prior episode of hospitalization for DKA. Currently states he feels better than on arrival. Denies any chest pain, shortness of breath, abdominal pain. States he still has some nausea however this is better than on arrival. Critical Care Note Critical care time (min.): 38 Exam Vital Signs Temp Pulse Resp BP Pulse Ox O2 Del Method 100.1 F 117 H 23 H 117/81 99 Room Air 05/04/24 08:00 05/04/24 08:00 05/04/24 08:00 05/04/24 08:00 05/04/24 08:00 05/04/24 08:00 Narrative Exam General-no acute distress, awake alert and oriented, cooperative with exam, normal body habitus HEENT-normocephalic, atraumatic, sclera icteric, pupils equal and reactive, EOMI, mucosa is hydrated Chest-lungs clear to auscultation bilaterally, heart rate regular rhythmic, no bruits murmurs auscultated times exam, no tenderness on palpation of chest wall Abdomen-soft, nontender, bowel sounds present, no rebound or guarding Extremities-no edema the lower extremities, pulses palpable, no clubbing or mottling, moves all 4 Drips Insulin Physical Exam Completion Physical Exam Complete?: Yes Objective - Tube Fitter Labs 05/03/24 21:47 05/04/24 09:34 Labs: Laboratory Results - last 24 hr 05/03/24 05/03/24 05/04/24 21:47 23:43 00:00 WBC 12.3 H RBC 5.06 Hgb 15.9 Hct 44.0 MCV 87 MCH 31.4 MCHC 36.1 RDW Std Deviation 38.7 Plt Count 330 Neut % (Auto) 83 H Lymph % (Auto) 11 [place] % (Auto) 5 Eos % (Auto) 0 Baso % (Auto) 0 Neut # (Auto) 10.2 H Lymph # (Auto) 1.4 [place] # (Auto) 0.6 Eos # (Auto) 0.0 Baso # (Auto) 0.0 Immature Gran # (Auto) 0.09 H Absolute Nucleated RBC 0.00 Immature Gran % 1 H Nucleated RBC % 0 VBG pH 7.21 L VBG pCO2 28 L VBG pO2 44 VBG O2 Sat (Flor) 77 L VBG Base Excess -15 L Sodium 133 L Potassium 5.1 Chloride 97 L Carbon Dioxide 11.3 L* Anion Gap 25 H BUN 24 H Creatinine 1.8 H Estim Creat Clear Calc 64.2 eGFR 53 L BUN/Creatinine Ratio 13 [address]ucose [address] Glu mg/dL 243 H Hemoglobin A1c 10.1 H Calculated Osmolality 286 Lactic Acid 2.3 H Calcium 10.8 H Corrected Calcium 10.8 H Phosphorus Magnesium 2.1 Total Bilirubin 0.7 AST 49 H ALT 41 Alkaline Phosphatase 85 Troponin I < 0.002 Total Protein 8.7 H Albumin 5.5 H Globulin 3.2 Albumin/Globulin Ratio 1.7 Lipase 38 Beta-Hydroxybutyrate/Acetoacetate > 6.4 H TSH 0.73 Free T4 1.34 Ur Collection Type Clean Catch Urine Color Lt-Yellow Urine Clarity Clear Urine pH 5.5 Ur Specific [place] 1.024 Urine Protein 1+ A Urine Glucose (UA) 4+ A Urine Ketones 4+ A Urine Blood Negative Urine Nitrite Negative Urine Bilirubin Negative Urine Urobilinogen (Auto) Negative Ur Leukocyte Esterase Negative Urine RBC 3 Urine WBC 1 Ur Squamous Epith Cells < 1 Urine Bacteria None Hyaline Casts < 1 05/04/24 05/04/24 05/04/24 01:34 05:27 09:34 WBC RBC Hgb Hct MCV MCH MCHC RDW Std Deviation Plt Count Neut % (Auto) Lymph % (Auto) [place] % (Auto) Eos % (Auto) Baso % (Auto) Neut # (Auto) Lymph # (Auto) [place] # (Auto) Eos # (Auto) Baso # (Auto) Immature Gran # (Auto) Absolute Nucleated RBC Immature Gran % Nucleated RBC % VBG pH 7.38 VBG pCO2 36 VBG pO2 41 VBG O2 Sat (Flor) 79 L VBG Base Excess -3 Sodium 136 137 Potassium 4.2 D 3.8 Chloride 105 104 Carbon Dioxide 15.9 L 20.4 Anion Gap 15 13 BUN 18 18 Creatinine 1.3 D 1.2 Estim Creat Clear Calc 88.9 96.3 eGFR > 60 > 60 BUN/Creatinine Ratio 14 15 Glucose 168 H D [address] Glu mg/dL Hemoglobin A1c Calculated Osmolality 277 276 Lactic Acid 2.0 1.1 0.9 Calcium 9.1 D 9.4 Corrected Calcium 9.1 D 9.4 Phosphorus 2.0 L 1.5 L 1.4 L Magnesium 1.9 1.9 Total Bilirubin AST ALT Alkaline Phosphatase Troponin I Total Protein Albumin 4.3 D 4.2 Globulin Albumin/Globulin Ratio Lipase Beta-Hydroxybutyrate/Acetoacetate TSH Free T4 Ur Collection Type Urine Color Urine Clarity Urine pH Ur Specific [place] Urine Protein Urine Glucose (UA) Urine Ketones Urine Blood Urine Nitrite Urine Bilirubin Urine Urobilinogen (Auto) Ur Leukocyte Esterase Urine RBC Urine WBC Ur Squamous Epith Cells Urine Bacteria Hyaline Casts Assessment & Plan Additional Plan Additional Plan: In summary this is a 28-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 Follow-up with PCP Endo DKA-on DKA protocol with fluids and insulin drips. Labs every 4 hours. Once his anion gap is closed x 2 will transition to subcutaneous Lantus and a sliding scale of insulin Heme Leukocytosis-likely reactive in nature secondary to DKA ID Stable Case discussed with ICU team Labs, imaging and records reviewed Approximately 38 critical care was required for eval, exam, intervention, review, discussion and formulation of plan of care for this 28-year-old male with diabetic ketoacidosis at high risk for further and ongoing decompensation. Provider Notation Provider Notation: Although this document has been carefully reviewed, there may still be some phonetic and other typographical errors. These errors are purely grammatical due to imperfections in the software program and should not be construed in any way to compromise the substance of the patient's medical care during this visit. Thank you for the opportunity and privilege in assisting you with this patient's care and management.
[2024-05-04 14:03] LABS: Lactate (Lactic Acid) 1.1 mMol/L (0.4-2.0)
--- NOTE | 2024-05-04 14:24 | ESPR_ITS ---
Documentation for date of: 05/04/24 Subjective Subjective Interval history: patient was examined bedside , no acute overnight . gap closed twice . we transition him to SC insulin. 25 U x1 . Exam Vital Signs Temp Pulse Resp BP Pulse Ox O2 Del Method 98.9 F 92 18 131/92 H 99 Room Air 05/04/24 12:00 05/04/24 13:00 05/04/24 13:00 05/04/24 13:00 05/04/24 13:00 05/04/24 13:00 Narrative Exam GENERAL: Comfortable adult seen resting comfortably in hospital bed, no acute distress VITALS: All vitals were reviewed and the pulse ox is 98% on room air HEENT: Normocephalic, atraumatic. Pupils are equal and reactive. Oral mucosa is moist. NECK: Supple, nontender, no JVD CHEST: Symmetrical, atraumatic and with equal expansion ,Nontender on palpation CARDIOVASCULAR: Heart regular rhythm & rate. S1/S2. no murmur or gallop rub or extra beats. LUNGS: Clear to auscultation bilaterally with symmetrical chest rise. No laboring tachypnea or wheezing. No intercostal subcostal retraction. No rales and no rhonchi. ABDOMEN: Soft, flat, nontender to palpation, no guarding or rebound tenderness. Active and normal bowel sounds. EXTREMITIES:Moves all 4 extremities,No B/L LE edema. SKIN: Warm and dry, no jaundice or rashes noted. NEURO: Patient is AO x 3, Cranial nerves II through XII grossly intact. There is no focal neurologic deficits noted. PSYCHIATRIC: Patient is in normal mood, cooperative, no SI or HI or hallucinations. Objective Labs 05/03/24 21:47 05/04/24 13:45 Labs: Laboratory Results - last 24 hr 05/03/24 05/03/24 05/04/24 21:47 23:43 00:00 WBC 12.3 H RBC 5.06 Hgb 15.9 Hct 44.0 MCV 87 MCH 31.4 MCHC 36.1 RDW Std Deviation 38.7 Plt Count 330 Neut % (Auto) 83 H Lymph % (Auto) 11 [place] % (Auto) 5 Eos % (Auto) 0 Baso % (Auto) 0 Neut # (Auto) 10.2 H Lymph # (Auto) 1.4 [place] # (Auto) 0.6 Eos # (Auto) 0.0 Baso # (Auto) 0.0 Immature Gran # (Auto) 0.09 H Absolute Nucleated RBC 0.00 Immature Gran % 1 H Nucleated RBC % 0 VBG pH 7.21 L VBG pCO2 28 L VBG pO2 44 VBG O2 Sat (Flor) 77 L VBG Base Excess -15 L Sodium 133 L Potassium 5.1 Chloride 97 L Carbon Dioxide 11.3 L* Anion Gap 25 H BUN 24 H Creatinine 1.8 H Estim Creat Clear Calc 64.2 eGFR 53 L BUN/Creatinine Ratio [address]ucose [address] Glu mg/dL 243 H Hemoglobin A1c 10.1 H Calculated Osmolality 286 Lactic Acid 2.3 H Calcium 10.8 H Corrected Calcium 10.8 H Phosphorus Magnesium 2.1 Total Bilirubin 0.7 AST 49 H ALT 41 Alkaline Phosphatase 85 Troponin I < 0.002 Total Protein 8.7 H Albumin 5.5 H Globulin 3.2 Albumin/Globulin Ratio 1.7 Lipase 38 Beta-Hydroxybutyrate/Acetoacetate > 6.4 H TSH 0.73 Free T4 1.34 Ur Collection Type Clean Catch Urine Color Lt-Yellow Urine Clarity Clear Urine pH 5.5 Ur Specific [place] 1.024 Urine Protein 1+ A Urine Glucose (UA) 4+ A Urine Ketones 4+ A Urine Blood Negative Urine Nitrite Negative Urine Bilirubin Negative Urine Urobilinogen (Auto) Negative Ur Leukocyte Esterase Negative Urine RBC 3 Urine WBC 1 Ur Squamous Epith Cells < 1 Urine Bacteria None Hyaline Casts < 1 05/04/24 05/04/24 05/04/24 01:34 05:27 09:34 WBC RBC Hgb Hct MCV MCH MCHC RDW Std Deviation Plt Count Neut % (Auto) Lymph % (Auto) [place] % (Auto) Eos % (Auto) Baso % (Auto) Neut # (Auto) Lymph # (Auto) [place] # (Auto) Eos # (Auto) Baso # (Auto) Immature Gran # (Auto) Absolute Nucleated RBC Immature Gran % Nucleated RBC % VBG pH 7.38 VBG pCO2 36 VBG pO2 41 VBG O2 Sat (Flor) 79 L VBG Base Excess -3 Sodium 136 137 Potassium 4.2 D 3.8 Chloride 105 104 Carbon Dioxide 15.9 L 20.4 Anion Gap 15 13 BUN 18 18 Creatinine 1.3 D 1.2 Estim Creat Clear Calc 88.9 96.3 eGFR > 60 > 60 BUN/Creatinine Ratio 14 15 Glucose 168 H D [address] Glu mg/dL Hemoglobin A1c Calculated Osmolality 277 276 Lactic Acid 2.0 1.1 0.9 Calcium 9.1 D 9.4 Corrected Calcium 9.1 D 9.4 Phosphorus 2.0 L 1.5 L 1.4 L Magnesium 1.9 1.9 Total Bilirubin AST ALT Alkaline Phosphatase Troponin I Total Protein Albumin 4.3 D 4.2 Globulin Albumin/Globulin Ratio Lipase Beta-Hydroxybutyrate/Acetoacetate TSH Free T4 Ur Collection Type Urine Color Urine Clarity Urine pH Ur Specific [place] Urine Protein Urine Glucose (UA) Urine Ketones Urine Blood Urine Nitrite Urine Bilirubin Urine Urobilinogen (Auto) Ur Leukocyte Esterase Urine RBC Urine WBC Ur Squamous Epith Cells Urine Bacteria Hyaline Casts 05/04/24 13:45 WBC RBC Hgb Hct MCV MCH MCHC RDW Std Deviation Plt Count Neut % (Auto) Lymph % (Auto) [place] % (Auto) Eos % (Auto) Baso % (Auto) Neut # (Auto) Lymph # (Auto) [place] # (Auto) Eos # (Auto) Baso # (Auto) Immature Gran # (Auto) Absolute Nucleated RBC Immature Gran % Nucleated RBC % VBG pH VBG pCO2 VBG pO2 VBG O2 Sat (Flor) VBG Base Excess Sodium Potassium Chloride Carbon Dioxide Anion Gap BUN Creatinine Estim Creat Clear Calc eGFR BUN/Creatinine Ratio Glucose Estimated Ave Glu mg/dL Hemoglobin A1c Calculated Osmolality Lactic Acid 1.1 Calcium Corrected Calcium Phosphorus Magnesium Total Bilirubin AST ALT Alkaline Phosphatase Troponin I Total Protein Albumin Globulin Albumin/Globulin Ratio Lipase Beta-Hydroxybutyrate/Acetoacetate TSH Free T4 Ur Collection Type Urine Color Urine Clarity Urine pH Ur Specific [place] Urine Protein Urine Glucose (UA) Urine Ketones Urine Blood Urine Nitrite Urine Bilirubin Urine Urobilinogen (Auto) Ur Leukocyte Esterase Urine RBC Urine WBC Ur Squamous Epith Cells Urine Bacteria Hyaline Casts ABG Interpretation ABG results: 05/03/24 05/04/24 21:47 09:34 VBG pH 7.21 L 7.38 VBG pCO2 28 L 36 VBG pO2 44 41 VBG Base Excess -15 L -3 Quality Measures Quality Measures none Assessment & Plan Assessment Current Active Medications: Generic Name Dose Route Start Last Admin Trade Name Freq PRN Reason Stop Dose Admin Acetaminophen 650 mg 05/04/24 00:57 Acetaminophen 325 Mg Tablet PO 06/03/24 00:56 Q4HR PRN PAIN SCALE 1-3 (mild Acetaminophen 650 mg 05/04/24 00:57 Acetaminophen Supp 650 Mg Supp MI 06/03/24 00:56 Q4HR PRN PAIN SCALE 1-3 (mild Al Hydrox/Mg Hydrox/Simethicone 30 ml 05/04/24 00:57 Mg Hyd/Al Hyd/[place] (Maalox Reg) Susp 30 Ml Udc PO 06/03/24 00:56 Q4HR PRN Heartburn or Upset Stomach Dextrose 25 ml 05/04/24 00:57 Dextrose 50%-Water Inj 50 Ml Syringe IV [id number] PRN Blood Sugar - Low Enoxaparin Sodium 40 mg 05/04/24 09:00 Enoxaparin Sod Inj 40 Mg/0.4 Ml Syringe SC 05/18/24 08:59 QDAY GLENN Insulin Human Regular 100 unit in 100 mls @ 7.711 mls/hr 05/03/24 22:48 05/04/24 13:00 Myxredlin IV 06/02/24 22:47 0.025 unit/kg/hr .[id number] PRN 1.928 mls/hr PER PROTOCOL Titration Protocol 0.1 UNIT/KG/HR Potassium Chloride 10 meq in 100 mls @ 100 mls/hr 05/04/24 00:57 Kcl Ivpb IV 06/03/24 00:56 .Q1H PRN IF POTASSIUM LESS THAN 3.3 Magnesium Sulfate 2 gm in 50 mls @ 25 mls/hr 05/04/24 00:57 Magnesium Sulfate Ivpb IV 06/03/24 00:56 .Q2H PRN PER DKA PROTOCOL Dextrose/Lactated Ringer's 1,000 mls @ 250 mls/hr 05/04/24 00:57 D5-Lr IV 06/03/24 00:56 .Q4H PRN PER PROTOCOL Lactated Ringer's 1,000 mls @ 250 mls/hr 05/04/24 00:57 05/04/24 04:00 Lactated Ringers IV 05/05/24 00:56 0 mls/hr .Q4H PRN Infusion PER PROTOCOL Potassium Chloride 20 meq/ 1,010 mls @ 250 mls/hr 05/04/24 00:57 Lactated Ringer's IV 06/03/24 00:56 .Q4H3M PRN K LEVEL 3.3 TO 5.3mM/L Potassium Chloride 40 meq/ 1,020 mls @ 250 mls/hr 05/04/24 00:57 Lactated Ringer's IV 06/03/24 00:56 .Q4H5M PRN K LEVEL < 3.3 mM/L Potassium Chloride 40 meq/ 1,020 mls @ 250 mls/hr 05/04/24 00:57 Dextrose/Lactated Ringer's IV 06/03/24 00:56 .Q4H5M PRN K LEVEL < 3.3mM/L Potassium Cl/Dextrose/Lact Ringer's 20 meq in 1,000 mls @ 250 mls/hr 05/04/24 00:57 05/04/24 08:50 Kcl 20 Meq/L In D5-Lr IV 06/03/24 00:56 250 mls/hr .Q4H PRN Administration K LEVEL 3.3 TO 5.3 mM/L Potassium Chloride 10 meq in 100 mls @ 50 mls/hr 05/04/24 00:57 05/04/24 04:00 Kcl Ivpb IV 06/03/24 00:56 0 mls/hr PRN PRN Infusion K LEVEL 3.3 to 5.3 & BG > 200 Potassium Phosphate 15 mmol in 250 mls @ 62.5 mls/hr 05/04/24 00:57 Pot Phos 15 Mmol In Ns 250 Ml IV 06/03/24 00:56 PRN PRN Phosphate <= 1mg/dL Sodium Phosphate 15 mmol/ 255 mls @ 62.5 mls/hr 05/04/24 00:57 Sodium Chloride IV 06/03/24 00:56 .Q4H5M PRN Phosphate <= 1mg/dL and K> than 5.3 Magnesium Hydroxide 30 ml 05/04/24 00:57 Milk Of Magnesia Susp 30 Ml Udc PO 06/03/24 00:56 QDAY PRN CONSTIPATION Sodium Bicarbonate 50 ml 05/04/24 00:57 Sodium Bicarb Inj 8.4% Syr 50 Ml Syringe IV 06/03/24 00:56 PRN PRN For ph <= to 7.0 Plan 28 year old male patient with PMHx of IDDM I, and appendectomy presented to ED for complaints of diffuse abdominal pain, nausea and vomiting since day prior to admission. Patient reports having a hot dog from a gas station a few hours prior to symptoms start, denies any diarrhea, fever or chills. Patient has no other complaints, states that he is compliant with his insulin, never misses a dose and calculates his calorie intake. At ED patient was found to be tachycardic, labs were noted for WBC of 12, Na 133, K 5.1, Cl 97, HCO3 11.3, AG 25, Cr 1.8, glucose of 395, C. Calcium of 10.8, P 2.0, BHB >6.4, VBG pH 7.21, pCO2 28. At ED patient was given 2L of NS bolus and was started on insulin drip, ICU consulted for further evaluation and care of DKA. [employer] #No active issues CVS #Tachycardia- resolved -2/2 DKA -IV hydration per DKA protocol- completed Resp #No active issues Renal #Anion gap metabolic acidosis w/respiratory alkalosis- resolved #DKA- resolved #Pre-renal KAMILLA- resolved #Hyponatremia- resolved Patient given 2L of NS bolus at ED. Corrected Na 140 DKA protocol in ENDO -05/04/24: gap closed , gave him 25sq insulin .ISS order placed ID #Gastroenteritis - resolved Patient reports nausea/vomiting after consuming hot dog from gas station. Denies any diarrhea, chills, fever. Patient started on IV hydration, no longer having nausea/vomiting. Heme #Leukocytosis Likely reactive in setting of DKA and gastroenteritis. Continue to monitor daily CBC. Further evaluation/lab testing as warranted. Endo #DKA #IDDM I Patient started on DKA protocol. -HbA1c- 10.1 -ISS -Insulin galgrine 25x1 was given -will start his home insulin glargine 28 Q day . -Patient on sliding scale insulin with lispro. #hypophosphatemia -repleted GI #Nausea/vomiting- resolved -2/2 Gastroenteritis vs DKA -Patient no longer has nausea/vomiting. Ondansetron as needed -Ondansetron as needed DVT prophylaxis: lovenox Diet: Diabetic Lines: PIV CODE STATUS: Full code Reason for hospitalization/disposition: DKA downgraded to floors Plan of care discussed with attending Dr Brady, Derrek Fontaine MD,PGY- 3
[2024-05-04 14:39] LABS: Anion Gap 9 (7-16); BUN/Creatinine Ratio 13 Ratio (12-20); Blood Urea Nitrogen 16 mg/dL (9-23); Calcium 9.3 mg/dL (8.3-10.6); Calcium (Corrected) 9.3 mg/dL (8.5-10.1); Carbon Dioxide 23.6 mMol/L (20.0-31.0); Chloride 104 mMol/L (98-107); Creatinine (Component) 1.2 mg/dL (0.6-1.3); Estimated Creatinine Clearance 96.3 mL/min (>60); Glucose 122 mg/dL (74-106); Magnesium 1.7 mg/dL (1.6-2.6); Osmolality,Calculated 276 (275-295); Phosphorous 1.5 mg/dL (2.4-5.1); Sodium 137 mMol/L (136-145); eGFR > 60 See Note
[2024-05-04] MEDS: INSULIN GLARGINE (Lantus) 5 UNIT/0.05 ML (PER 5 UNITS) 25 UNIT SC (15:22)
--- NOTE | 2024-05-04 15:50 | PC.SS ---
RUNWAY MODEL conducted bedside contact with the patient conduct initial assessment and to discuss discharge planning.? Patient confirmed demographic information.? Patient resides in [place], [place].? Patient resides at home with family.? Patient visiting partner, Lenore De Paz ; upon DKA.? Patient is currently employed.? Patient does not utilize any form of DME to assist with ambulation.? Patient does not utilize home oxygen.? Patient describes the ability to complete ADL?s independently.? Patient identified partner, Lenore De Paz; as medical surrogate decision maker.? Patient utilizes [facility] for PCP services.? Patient does not participate with dialysis.? Patient does not possess any specialty providers.? Patient possesses history of diabetes, insulin dependent.? Plan is for the patient to return home at the time of discharge.? Partner will provide transportation on behalf of the patient. ?No discharge needs identified by the patient.? No further intervention required at this time, mental health social worker will be available to address any further concerns.? Next of Kin: Lenore De Paz D/C Plan: Home
[2024-05-04] MEDS: NAPH,KPH MBDB 1 PACKET (1.5 GM) PO (16:22)
[2024-05-04 17:04] LABS: Albumin, Serum 3.6 gm/dL (3.5-5.0); Anion Gap 9 (7-16); BUN/Creatinine Ratio 11 Ratio (12-20); Blood Urea Nitrogen 12 mg/dL (9-23); Calcium 8.8 mg/dL (8.3-10.6); Calcium (Corrected) 9.1 mg/dL (8.5-10.1); Carbon Dioxide 21.6 mMol/L (20.0-31.0); Chloride 106 mMol/L (98-107); Creatinine (Component) 1.1 mg/dL (0.6-1.3); Estimated Creatinine Clearance 105.1 mL/min (>60); Glucose 151 mg/dL (74-106); Magnesium 1.6 mg/dL (1.6-2.6); Osmolality,Calculated 276 (275-295); Phosphorous 1.2 mg/dL (2.4-5.1); Potassium 3.4 mMol/L (3.4-5.1); Sodium 137 mMol/L (136-145); eGFR > 60 See Note
--- NOTE | 2024-05-04 17:38 | PD.RESPRO ---
Documentation for date of: 05/04/24 Subjective Subjective Interval history: Patient is a 28-year-old male with type 1 diabetes mellitus on insulin and history of appendectomy. He was admitted to the ICU for DKA, which has since resolved. Patient is tolerating diet and stable for downgrade to hospitalist team. At bedside, patient was evaluated and his only complaint was feeling some reflux secondary to vomiting, for which he was given Protonix x 1. Remainder of ROS was negative. He is tolerating p.o. intake, and had a sip of Gatorade without any nausea. Exam Vital Signs Temp Pulse Resp BP Pulse Ox O2 Del Method 98.9 F 92 18 131/92 H 99 Room Air 05/04/24 12:00 05/04/24 13:00 05/04/24 13:00 05/04/24 13:00 05/04/24 13:05/04/24 13:00 Narrative Exam Gen: AAOx3, resting comfortably in bed, pleasant to speak with HEENT: NCAT, PERRLA, EOMI, MMM, no LAD CVS: normal S1, S2. RRR. No MRG Resp: CTA B/L. No rhonchi, rales, crackles or wheezing Abd: soft, non-tender, non-distended. BS+ in all 4 quadrants MSK: Good ROM in BUE & BLE. No edema or rash. Neuro: CN II-XII grossly intact. Strength 5/5 in BUE & BLE. Objective Labs 05/03/24 21:47 05/04/24 16:31 Labs: Laboratory Results - last 24 hr 05/03/24 05/03/24 05/04/24 21:47 23:43 00:00 WBC 12.3 H RBC 5.06 Hgb 15.9 Hct 44.0 MCV 87 MCH 31.4 MCHC 36.1 RDW Std Deviation 38.7 Plt Count 330 Neut % (Auto) 83 H Lymph % (Auto) 11 [place] % (Auto) 5 Eos % (Auto) 0 Baso % (Auto) 0 Neut # (Auto) 10.2 H Lymph # (Auto) 1.4 [place] # (Auto) 0.6 Eos # (Auto) 0.0 Baso # (Auto) 0.0 Immature Gran # (Auto) 0.09 H Absolute Nucleated RBC 0.00 Immature Gran % 1 H Nucleated RBC % 0 VBG pH 7.21 L VBG pCO2 28 L VBG pO2 44 VBG O2 Sat (Flor) 77 L VBG Base Excess -15 L Sodium 133 L Potassium 5.1 Chloride 97 L Carbon Dioxide 11.3 L* Anion Gap 25 H BUN 24 H Creatinine 1.8 H Estim Creat Clear Calc 64.2 eGFR 53 L BUN/Creatinine Ratio [address]ucose [address] Glu mg/dL 243 H Hemoglobin A1c 10.1 H Calculated Osmolality 286 Lactic Acid 2.3 H Calcium 10.8 H Corrected Calcium 10.8 H Phosphorus Magnesium 2.1 Total Bilirubin 0.7 AST 49 H ALT 41 Alkaline Phosphatase 85 Troponin I < 0.002 Total Protein 8.7 H Albumin 5.5 H Globulin 3.2 Albumin/Globulin Ratio 1.7 Lipase 38 Beta-Hydroxybutyrate/Acetoacetate > 6.4 H TSH 0.73 Free T4 1.34 Ur Collection Type Clean Catch Urine Color Lt-Yellow Urine Clarity Clear Urine pH 5.5 Ur Specific [place] 1.024 Urine Protein 1+ A Urine Glucose (UA) 4+ A Urine Ketones 4+ A Urine Blood Negative Urine Nitrite Negative Urine Bilirubin Negative Urine Urobilinogen (Auto) Negative Ur Leukocyte Esterase Negative Urine RBC 3 Urine WBC 1 Ur Squamous Epith Cells < 1 Urine Bacteria None Hyaline Casts < 1 05/04/24 05/04/24 05/04/24 01:34 05:27 09:34 WBC RBC Hgb Hct MCV MCH MCHC RDW Std Deviation Plt Count Neut % (Auto) Lymph % (Auto) [place] % (Auto) Eos % (Auto) Baso % (Auto) Neut # (Auto) Lymph # (Auto) [place] # (Auto) Eos # (Auto) Baso # (Auto) Immature Gran # (Auto) Absolute Nucleated RBC Immature Gran % Nucleated RBC % VBG pH 7.38 VBG pCO2 36 VBG pO2 41 VBG O2 Sat (Flor) 79 L VBG Base Excess -3 Sodium 136 137 Potassium 4.2 D 3.8 Chloride 105 104 Carbon Dioxide 15.9 L 20.4 Anion Gap 15 13 BUN 18 18 Creatinine 1.3 D 1.2 Estim Creat Clear Calc 88.9 96.3 eGFR > 60 > 60 BUN/Creatinine Ratio 14 15 Glucose 168 H D [address] Glu mg/dL Hemoglobin A1c Calculated Osmolality 277 276 Lactic Acid 2.0 1.1 0.9 Calcium 9.1 D 9.4 Corrected Calcium 9.1 D 9.4 Phosphorus 2.0 L 1.5 L 1.4 L Magnesium 1.9 1.9 Total Bilirubin AST ALT Alkaline Phosphatase Troponin I Total Protein Albumin 4.3 D 4.2 Globulin Albumin/Globulin Ratio Lipase Beta-Hydroxybutyrate/Acetoacetate TSH Free T4 Ur Collection Type Urine Color Urine Clarity Urine pH Ur Specific [place] Urine Protein Urine Glucose (UA) Urine Ketones Urine Blood Urine Nitrite Urine Bilirubin Urine Urobilinogen (Auto) Ur Leukocyte Esterase Urine RBC Urine WBC Ur Squamous Epith Cells Urine Bacteria Hyaline Casts 05/04/24 05/04/24 13:45 16:31 WBC RBC Hgb Hct MCV MCH MCHC RDW Std Deviation Plt Count Neut % (Auto) Lymph % (Auto) [place] % (Auto) Eos % (Auto) Baso % (Auto) Neut # (Auto) Lymph # (Auto) [place] # (Auto) Eos # (Auto) Baso # (Auto) Immature Gran # (Auto) Absolute Nucleated RBC Immature Gran % Nucleated RBC % VBG pH VBG pCO2 VBG pO2 VBG O2 Sat (Flor) VBG Base Excess Sodium 137 137 Potassium 4.0 3.4 D Chloride 104 106 Carbon Dioxide 23.6 21.6 Anion Gap 9 9 BUN 16 12 Creatinine 1.2 1.1 Estim Creat Clear Calc 96.3 105.1 eGFR > 60 > 60 BUN/Creatinine Ratio 13 11 L Glucose [address] Glu mg/dL Hemoglobin A1c Calculated Osmolality 276 276 Lactic Acid 1.1 Calcium 9.3 8.8 Corrected Calcium 9.3 9.1 Phosphorus 1.5 L 1.2 L Magnesium 1.7 1.6 Total Bilirubin AST ALT Alkaline Phosphatase Troponin I Total Protein Albumin 4.0 3.6 Globulin Albumin/Globulin Ratio Lipase Beta-Hydroxybutyrate/Acetoacetate TSH Free T4 Ur Collection Type Urine Color Urine Clarity Urine pH Ur Specific [place] Urine Protein Urine Glucose (UA) Urine Ketones Urine Blood Urine Nitrite Urine Bilirubin Urine Urobilinogen (Auto) Ur Leukocyte Esterase Urine RBC Urine WBC Ur Squamous Epith Cells Urine Bacteria Hyaline Casts ABG Interpretation ABG results: 05/03/24 05/04/24 21:47 09:34 VBG pH 7.21 L 7.38 VBG pCO2 28 L 36 VBG pO2 44 41 VBG Base Excess -15 L -3 Quality Measures Quality Measures VTE prophylaxis Assessment & Plan Assessment Current Active Medications: Generic Name Dose Route Start Last Admin Trade Name Freq PRN Reason Stop Dose Admin Acetaminophen 650 mg 05/04/24 00:57 Acetaminophen 325 Mg Tablet PO 06/03/24 00:56 Q4HR PRN PAIN SCALE 1-3 (mild Acetaminophen 650 mg 05/04/24 00:57 Acetaminophen Supp 650 Mg Supp [place] 06/03/24 00:56 Q4HR PRN PAIN SCALE 1-3 (mild Al Hydrox/Mg Hydrox/Simethicone 30 ml 05/04/24 00:57 Mg Hyd/Al Hyd/[place] (Maalox Reg) Susp 30 Ml Udc PO 06/03/24 00:56 Q4HR PRN Heartburn or Upset Stomach Dextrose 25 ml 05/04/24 00:57 Dextrose 50%-Water Inj 50 Ml Syringe IV [id number] PRN Blood Sugar - Low Dextrose 25 ml 05/04/24 16:38 Dextrose 50%-Water Inj 50 Ml Syringe IV 06/03/24 16:37 Q15MIN PRN BG 50-70 responsive npo pt Dextrose 50 ml 05/04/24 16:38 Dextrose 50%-Water Inj 50 Ml Syringe IV 06/03/24 16:37 Q15MIN PRN BG <50 OR BG <70 & pt unresponsive Enoxaparin Sodium 40 mg 05/04/24 09:00 05/04/24 16:59 Enoxaparin Sod Inj 40 Mg/0.4 Ml Syringe SC 05/18/24 08:59 Not Given QDAY GLENN Glucagon 1 mg 05/04/24 16:38 Glucagon Inj 1 Mg Vial IM Q15MIN PRN BG <70, and no IV access Insulin Human Regular 100 unit in 100 mls @ 7.711 mls/hr 05/03/24 22:48 05/04/24 16:22 Myxredlin IV 06/02/24 22:47 0 unit/kg/hr .[id number] PRN 0 mls/hr PER PROTOCOL Titration Protocol 0.1 UNIT/KG/HR Insulin Glargine 28 unit 05/05/24 09:00 Insulin Glargine (Lantus) 5 Unit/0.05 Ml (Per 5 Units) SC 06/04/24 08:59 QDAY [facility] Insulin Human Lispro 0 unit 05/04/24 17:00 Insulin Lispro (Admelog) 1 Unit/0.01 Ml Unit SC 06/03/24 16:59 AC GLENN Protocol Insulin Human Lispro 5 unit 05/04/24 17:30 Insulin Lispro (Admelog) 1 Unit/0.01 Ml Unit SC 06/03/24 17:29 TIDWM GLENN Magnesium Hydroxide 30 ml 05/04/24 00:57 Milk Of Magnesia Susp 30 Ml Udc PO 06/03/24 00:56 QDAY PRN CONSTIPATION Plan Patient is a 28-year-old male with type 1 diabetes mellitus on insulin and history of appendectomy. He was admitted to the ICU for DKA, which has since resolved. Patient is tolerating diet and stable for downgrade to hospitalist team. #T1DM, on insulin #DKA resolved #Anion gap metabolic acidosis resolved #KAMILLA resolved Patient was started on home insulin Lantus dose of 20 units daily plus SSI with lispro Monitor bedside blood glucose ACHS A1c 10.1 On admission, AGMA/lactic acidosis/KAMILLA were present which have since resolved #Electrolyte abnormalities Most recent CHEM panel unremarkable other than electrolyte abnormalities (K3.4, Phos 1.2, mag 1.6) which were repleted in ICU Follow-up CHEM panel on a.m. labs Replete electrolytes as needed #Leukocytosis As seen on CBC from 05/03, possibly secondary to dehydration versus reactive Follow-up a.m. CBC Dispo: ICU downgrade for DKA. Anticipate discharge in 24-48 hours as long as blood sugars are controlled GI PPx: None DVT PPx: Lovenox Diet: Low carb con CODE STATUS: Full code Patient seen and care discussed with my attending Dr. Sparks. Edith Dominguez MD PGY-3 Attending Provider Attestation/Addendum I have discussed and was present for the essential components of the history, physical examination, diagnosis, and treatment plan with the resident. I agree with the patient's care as documented by the resident and amended herein by me. Yo Sparks DO. Although this document has been carefully reviewed, there may still be some phonetic and other typographical errors. These errors are purely grammatical due to imperfections in the software program and should not be construed in any way to compromise the substance of the patient's medical care during this visit.
[2024-05-04] MEDS: PANTOPRAZOLE 40 MG TABLET PO (18:43)
[2024-05-05] VITALS: BP 116/83; PULSE 76; RESP 18; TEMP 36.8; O2SAT 97
[2024-05-05 04:00] VITALS: BP 126/82; PULSE 100; RESP 18; RESP 99; TEMP 36.8; O2SAT 99
[2024-05-05] MEDS: MG HYD/AL HYD/SIME (Maalox Reg) SUSP 30 ML UDC PO (04:19)
[2024-05-05 06:20] LABS: Basophils % (Auto) 0 % (0-2.5); Eosinophils # (Auto) 0.1 Thou/mm3 (0.0-0.5); Eosinophils % (Auto) 1 % (0-10); Hematocrit 34.2 % (41.0-53.0); Hemoglobin 12.4 g/dL (13.5-16.0); Immature Granulocytes % (Auto) 0 % (0-0); Immature Granulocytes Auto 0.02 Thou/mm3 (0.00-0.00); Lymphocytes # (Auto) 1.9 Thou/mm3 (1.0-4.8); Lymphocytes % (Auto) 20 % (10-50); Mean Corpuscular HGB Conc 36.3 g/dl (31.0-37.0); Mean Corpuscular Hemoglobin 31.1 pg (25.0-35.0); Mean Corpuscular Volume 86 fL (80-100); Monocytes # (Auto) 0.9 Thou/mm3 (0.0-0.8); Monocytes % (Auto) 10 % (0-12); Neutrophils # (Auto) 6.4 Thou/mm3 (1.8-7.7); Neutrophils % (Auto) 69 % (37-80); Nucleated Red Blood Cell % 0 /100 WBC (0); Platelet Count 224 Thou/mm3 (140-440); RDW Standard Deviation 38.6 fL (35.1-43.9); Red Blood Count 3.99 Miln/mm3 (4.50-5.90); White Blood Count 9.3 Thou/mm3 (3.8-10.6)
[2024-05-05 06:45] LABS: Alanine Aminotransferase 25 U/L (10-49); Albumin, Serum 3.9 gm/dL (3.5-5.0); Albumin/Globulin Ratio 1.9 (1.2-2.2); Alkaline Phosphatase 61 U/L (46-116); Anion Gap 10 (7-16); Aspartate Amino Transferase 23 U/L (0-34); BUN/Creatinine Ratio 11 Ratio (12-20); Bilirubin,Total 1.1 mg/dL (0.3-1.2); Blood Urea Nitrogen 11 mg/dL (9-23); Calcium 9.1 mg/dL (8.3-10.6); Calcium (Corrected) 9.2 mg/dL (8.5-10.1); Carbon Dioxide 24.7 mMol/L (20.0-31.0); Chloride 102 mMol/L (98-107); Estimated Creatinine Clearance 115.6 mL/min (>60); Globulin 2.1 gm/dL (2.3-3.5); Glucose 168 mg/dL (74-106); Magnesium 1.8 mg/dL (1.6-2.6); Osmolality,Calculated 277 (275-295); Phosphorous 2.3 mg/dL (2.4-5.1); Potassium 3.3 mMol/L (3.4-5.1); Sodium 137 mMol/L (136-145); eGFR > 60 See Note
[2024-05-05] MEDS: INSULIN LISPRO (AdmeLOG) 1 UNIT/0.01 ML UNIT 5 UNIT SC (07:44)
[2024-05-05] MEDS: INSULIN LISPRO (AdmeLOG) 1 UNIT/0.01 ML UNIT SC (07:44)
[2024-05-05 08:00] VITALS: BP 131/86; PULSE 81; RESP 18; TEMP 37.2; O2SAT 96
[2024-05-05] MEDS: Magnesium Sulfate 2 GM Ivpb 2 GM/50 ML BAG IV (09:14)
[2024-05-05] MEDS: INSULIN GLARGINE (Lantus) 5 UNIT/0.05 ML (PER 5 UNITS) 28 UNIT SC (09:14)
[2024-05-05] MEDS: NAPH,KPH MBDB 1 PACKET (1.5 GM) PO (09:15)
[2024-05-05] MEDS: POTASSIUM CHLORIDE 20 mEq TABCR 40 MEQ PO (09:16)
--- NOTE | 2024-05-05 10:20 | ESDS_ITS ---
Planned Discharge Date 05/05/24 DS: Providers Provider Date of admission: 05/04/24 00:57 Primary care physician: Physician No Primary/Family Admitting Provider: Hannah Dasilva MD Attending Provider on Admission: Wisam Sparks DO Consults: 05/04/24 01:01 Referral Registered Dietitian Routine Comment: Attending Provider on DC: Edith Dominguez MD Discharging Provider: Edith Dominguez MD DS: Diagnosis Problem List Completed Was Problem List Reviewed/Reconciled?: Yes Hospital Course Hospital Course Hospital course: Patient was a 28-year-old male with type 1 diabetes mellitus on insulin (lantus, SSI at mealtime) and history of appendectomy. He was admitted to the ICU for DKA protocol (IVF/Insulin gtt/electrolyte replacement), after having gastroenteritis related to eating some street food. His DKA resolved, and patient was noted to be tolerating diet. He was started on his home insulin regimen, and deemed stable for downgrade to hospitalist team to be observed overnight. VS, labs reviewed and stable. FBG and POC levels were WNL. A1c 10.1%, and patient will be discharged with a CGM. He was advised to follow up with his PCP within 1-2 weeks. Additionally, patient complained of reflux related to vomiting, will add Maalox on DC. #T1DM, on insulin #DKA resolved #Anion gap metabolic acidosis resolved #KAMILLA resolved #Electrolyte abnormalities, resolved #Leukocytosis, reactive, resolved Patient seen and care discussed with my attending Dr. Sparks. Edith Dominguez MD PGY-3 Status at Discharge Cognitive/behavioral status at discharge: AAOx3 Time Spent with Patient Time attestation: Total time spent providing and/or coordinating discharge services: Time spent: Less than 30 minutes Exam Vital Signs Temp Pulse Resp BP Pulse Ox O2 Del Method O2 Flow Rate 98.9 F 81 18 131/86 H 96 Room Air 0 05/05/24 08:00 05/05/24 08:00 05/05/24 08:00 05/05/24 08:00 05/05/24 08:00 05/05/24 08:00 05/05/24 04:00 Narrative Exam Gen: AAOx3, resting comfortably in bed, pleasant to speak with, tattoos on chest HEENT: NCAT, PERRLA, EOMI, MMM, no LAD CVS: normal S1, S2. RRR. No MRG Resp: CTA B/L. No rhonchi, rales, crackles or wheezing Abd: soft, non-tender, non-distended. BS+ in all 4 quadrants MSK: Good ROM in BUE & BLE. No edema or rash. Neuro: CN II-XII grossly intact. Strength 5/5 in BUE & BLE. Discharge Plan Plan Patient Disposition: HOME (Self Care) Patient condition on transfer: Stable Care Plan Goals: Follow up with your Primary Care Provider within 1-2 weeks after discharge. If there is no appointment available, you can call the [facility] at [phone]. Continue taking your insulin as directed and check blood sugars daily Ordered Maalox as needed for GERD symptoms If your symptoms return or worsen, return to your nearest ED Prescriptions/Referrals Prescriptions/Med Rec: New (DME) FreeStyle Sharon 3 Plus Sensor Device See Rx Instructions .Route Qty: 1 0RF Rx Instructions: As directed (DME) FreeStyle Sharon 3 [place] Misc See Rx Instructions .Route Qty: 1 0RF Rx Instructions: As directed (DME) insulin syringe-needle U-100 [Ultra-Thin II (Short) Ins Syr] 0.3 mL 30 gauge x 5/16 syringe See Rx Instructions .Route Qty: 10 0RF Rx Instructions: As directed Gvoke HypoPen 1-Pack 1 mg/0.2 mL auto-injector 1 mg subcut QDAY PRN (Reason: hypoglycemia) Qty: 0.2 0RF alum-mag hydroxide-simeth [Mag-Al Plus] 200-200-20 mg/5 mL Suspension 30 ml PO Q4HR PRN (Reason: Heartburn or Upset Stomach) 14 Days Qty: 3000 0RF Continued insulin glargine [Basaglar KwikPen U-100 Insulin] 100 unit/mL (3 mL) insulin pen 28 unit subcut HS insulin lispro 100 unit/mL insulin pen 1 sliding scale dose SUBCUT TIDWMEAL Patient Comments: INJECT 1 UNIT PER 6 G CARBS SUBCUTANEOUS 3 TIMES A DAY WITH MEALS ACCORDING TO CARBOHYDRATE COUNTING. TID WM or QID WM. Referrals: No Primary/Family,Physician [Primary Care Provider] - Patient/Caregiver Discharge Instructions Discharge Activity: activity as tolerated Education Materials: Diabetes and Heart Disease, How to Check Your Blood Sugar, Insulin How to Use and Where to Inject, Healthy Meals for Diabetes, Diabetes: Inspecting Your Feet, Diabetes Exercise Plan, Diabetes Carbs Fats Protein Print Language: Citizen Of [place] Stand Alone Forms: [employer] Award Info., Patient Portal Info Letter Discharge Order Discharge Orders: Discharge (Routine); Ordered 05/05/24 Ordered By: Edith Dominguez Quality Discharge Quality Measures VTE prophylaxis MD Attestestation MD Attestation I have discussed and was present for the essential components of the discharge history, physical examination, diagnosis, and discharge treatment plan with the resident. I agree with the patient's discharge care as documented by the resident and amended herein by me. Yo Sparks DO. The patient understood all discharge instructions, all questions were answered satisfactorily. The patient was instructed to return to the Emergency Department is symptoms worsened or persisted. Blood glucose was normalized, A1c is 10 however it is downtrending from 13 several months ago. Patient was stable, afebrile, tolerating p.o. intake and ambulatory at time of discharge home. Although this document has been carefully reviewed, there may still be some phonetic and other typographical errors. These errors are purely grammatical due to imperfections in the software program and should not be construed in any way to compromise the substance of the patient's medical care during this visit.
[2024-05-05 10:25] VITALS: PULSE 81; RESP 15; RESP 99
--- NOTE | 2024-05-05 12:40 | PC.NURSE ---
Patient was given IV Magnesium sulfate at 25ml/hr. IV drug was done at 11:20 AM and was picked up by his girlfriend around 12:30 PM.
== END 2024-05-05 12:30 | disposition home or self-care (01) | DRG 420 ==
LOC: SERX 05-04 00:14 → SERHOLD 05-04 02:41 → S2SX 05-04 03:24 → S3SX 05-04 20:15
PROVIDERS: Physician Assistant; Student in an Organized Health Care Education/Training Program; Admitting Provider Internal Medicine; Emergency Provider Emergency Medicine; Visit Provider Student in an Organized Health Care Education/Training Program
DX: E10.10 Type 1 diabetes mellitus with ketoacidosis without coma (principal); F17.200 Nicotine dependence, unspecified, uncomplicated; E87.1 Hypo-osmolality and hyponatremia; N17.9 Acute kidney failure, unspecified; E83.39 Other disorders of phosphorus metabolism; R74.01 Elevation of levels of liver transaminase levels; K21.9 Gastro-esophageal reflux disease without esophagitis; K52.9 Noninfective gastroenteritis and colitis, unspecified; R00.0 Tachycardia, unspecified; E87.3 Alkalosis; Z90.49 Acquired absence of other specified parts of digestive tract
CPT/HCPCS: 36415; 71045; 80053; 80069; 81001; 82010; 82803; 83036; 83605; 83690; 83735; 84100; 84439; 84443; 84484; 85025; 87040; 87081; 87400; 87811; 93005; 96361; 96365; 96375; 99291; J1815; J2405; J3475; J3480; J7030; J7120; A9270